=== PATIENT | male | born 1960 | race Caucasian/White ===

== ENCOUNTER → 2018-05-02 | Outpatient (CLI) | payer OTHER ==
--- NOTE | 2018-05-02 09:57 | MR ---
EXAMINATION TYPE: MR cervical spine wo/w con DATE OF EXAM: 05/02/2018 COMPARISON: Correlation outside cervical spine report dated 01/13/2014 which comments on C4-C6 ACDF, d isc bulge at C3-C4 causing mild spinal canal narrowing, broad-based disc bulge at C5-C6, and diffuse disc bulge at C6-C7. Prior imaging is not available for review. HISTORY: 58-year-old male Cervicalgia / Radiculopathy Technique: Multiplanar, multisequence images of the cervical spine were obtained before and after adm inistration of 9.5 mL intravenous Gadavist gadolinium contrast. FINDINGS: No craniocervical junction abnormality, predental space widening, or prevertebral soft tissue swellin g. There is redemonstration of C4-C6 ACDF. Degenerative disc disease both above and below the fusion at C3-C4 and C6-C7 with disc desiccation an d disc osteophyte complex formation. There is fatty Modic type II endplate change at C6-C7. Alignment is maintained. No suspicious bone marrow placement. Scattered mild facet arthropathy is present. 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 At C2-C3, no significant canal or foraminal stenosis. At C3-C4, above the fusion, there is posterior disc osteophyte complex causing mild to moderate overa ll spinal canal stenosis with abutment and slight flattening of the ventral cord. No joon cord compr ession. There is facet arthropathy causing mild left neuroforaminal stenosis. At the fused C4-C5 level, there is mild congenital canal narrowing. No neuroforaminal stenosis. At the fused C5-C6 level, there is mild congenital canal narrowing without significant neural foramin al stenosis. At C6-C7, there is broad-based disc osteophyte complex with uncovertebral joint and facet arthropathy . Changes result in [id number] left and mild right neuroforaminal stenosis with moderate overal l spinal canal stenosis with AP canal dimension of 7 mm. There is abutment and flattening of the vent ral cord without joon cord compression. At C7-T1, there is a left paracentral disc protrusion with facet arthropathy. No significant spinal c anal or neuroforaminal stenosis. No T2-weighted cord signal abnormality. No prevertebral or paravertebral soft tissue abnormality. No abnormal enhancement within the spinal canal. IMPRESSION: 1. Status post C4-C6 ACDF. There is a component of underlying mild congenital spinal canal narrowing. Scattered mild facet arthropathy. 2. There is degenerative change both above and below the fusion. Below the fusion at C6-C7, broad-bas ed disc osteophyte complex with uncovertebral joint and facet arthropathy results in mild to moderate left and mild right neuroforaminal stenosis and moderate overall spinal canal narrowing. There is ab utment and slight flattening of the ventral cord without cord compression. 3. Above the fusion at C3-C4, disc osteophyte complex causes overall mild to moderate spinal canal na rrowing with slight abutment and flattening of the ventral cord again without cord compression. Mild left neuroforaminal stenosis here.
== END | disposition home or self-care (01) ==
LOC: RADMRIMAIN 08:13
PROVIDERS: ATTEND Physical Medicine & Rehabilitation
DX: M99.71 Connective tissue and disc stenosis of intervertebral foramina of cervical region (principal); M48.02 Spinal stenosis, cervical region; M46.92 Unspecified inflammatory spondylopathy, cervical region; M47.812 Spondylosis without myelopathy or radiculopathy, cervical region; Z98.1 Arthrodesis status
CPT/HCPCS: 72156; A9581

== ENCOUNTER 2020-04-23 05:09 | Emergency (ER) | payer MEDICARE ==
[2020-04-23 05:18] VITALS: BP 136/81; PULSE 61; RESP 20; TEMP 98.1
[2020-04-23] MEDS ORDERED: hydrOXYzine HCL 25 MG TAB PO STA (06:17)
[2020-04-23] MEDS ORDERED: diphenhydrAMINE 2% CREAM 28.4 GM TUBE TOPICAL STA (06:17)
[2020-04-23] MEDS ORDERED: predniSONE 50 MG TAB PO STA (06:17)
[2020-04-23] MEDS ORDERED: TRIAMCINOLONE 0.1% CREAM 80 GM TUBE TOPICAL STA (06:17)
--- NOTE | 2020-04-23 06:22 | ED ---
Skin/Abscess/FB HPI - General Chief complaint: Skin/Abscess/Foreign Body Stated complaint: rash Time Seen by Provider: 04/23/20 05:40 Source: patient, RN notes reviewed Mode of arrival: ambulatory Limitations: no limitations - History of Present Illness Initial comments: This 60-year-old male presents emergency Department chief complaint of a rash to his bilateral hands, wrist and forearm region. Started approximately 10 days ago. He states it has steadily worsened states is very itchy in which he is constantly itching in the room. Patient denies any new exposures medications denies being told weeds grass or in the rodriguez. Patient states that he took some Benadryl. He states that only thing that helps him is running his hand on hot water for long periods of time. He states that the itching has worsened this morning. Patient denies any other rashes. Denies any difficulty breathing. - Related Data Previous Rx's Medication Instructions Recorded hydrOXYzine HCL [Atarax] 50 mg PO QID PRN #20 tab 04/23/20 predniSONE 50 mg PO DAILY #4 tab 04/23/20 Allergies Allergy/AdvReac Type Severity Reaction Status Date / Time morphine Allergy Nausea & Verified 04/23/20 05:18 Vomiting Review of Systems ROS Statement: Those systems with pertinent positive or pertinent negative responses have been documented in the HPI. ROS Other: All systems not noted in ROS Statement are negative. Past Medical History Additional Past Medical History / Comment(s): back pain History of Any Multi-Drug Resistant Organisms: None Reported Past Surgical History: Back Surgery Past Psychological History: No Psychological Hx Reported Smoking Status: Never smoker Past Alcohol Use History: None Reported Past Drug Use History: None Reported General Exam Limitations: no limitations General appearance: alert, in no apparent distress Head exam: Present: atraumatic, normocephalic, normal inspection Respiratory exam: Present: normal lung sounds bilaterally. Absent: respiratory distress, wheezes, rales, rhonchi, stridor Cardiovascular Exam: Present: regular rate, normal rhythm, normal heart sounds. Absent: systolic murmur, diastolic murmur, rubs, gallop, clicks Neurological exam: Present: alert, oriented X3 Skin exam: Present: warm, dry, intact, normal color, rash (Bilateral hands, forearms there is dry scaly skin, erythematous of the raised rash with excoriations noted there is small vesicles noted) Course Vital Signs 09/25/20 05:13 Temperature 98.1 F Pulse Rate 61 Respiratory 20 Rate Blood Pressure 136/81 O2 Sat by Pulse 98 Oximetry Medical Decision Making - Medical Decision Making 60-year-old male presented for rash. Patient presented have contact dermatitis. Patient we treated with topical and oral steroids, antihistamines. Patient advised not to continuously for hot water on his rash as this may worsen the rash. Patient advised to use moisturizing cream. Disposition Clinical Impression: Contact dermatitis Disposition: HOME SELF-CARE Condition: Stable Instructions (If sedation given, give patient instructions): Contact Dermatitis (ED) Additional Instructions: Avoid excessive water exposure, apply moisturizing cream.Please return to the Emergency Department if symptoms worsen or any other concerns. Prescriptions: hydrOXYzine HCL [Atarax] 50 mg PO QID PRN #20 tab PRN Reason: itching predniSONE 50 mg PO DAILY #4 tab Is patient prescribed a controlled substance at d/c from ED?: No Referrals: None,Stated [Primary Care Provider] - 1-2 days Time of Disposition: 06:22
== END 2020-04-23 06:40 | disposition home or self-care (01) ==
LOC: EC 05:09
DX: L25.9 Unspecified contact dermatitis, unspecified cause (principal); Z88.5 Allergy status to narcotic agent
CPT/HCPCS: 99282; J7512

== ENCOUNTER 2021-03-03 12:20 | Emergency (ER) | payer MEDICARE ==
[2021-03-03 12:23] VITALS: TEMP 97.8
[2021-03-03] MEDS ORDERED: ONDANSETRON 4 MG/2 ML VIAL IVP STA (12:47)
[2021-03-03] MEDS ORDERED: KETOROLAC 15 MG/ML 1 ML VIAL IVP STA (12:47)
[2021-03-03] MEDS ORDERED: SODIUM CHLORIDE 0.9% 1,000 ML IV STA (12:47)
--- NOTE | 2021-03-03 13:15 | ED ---
General Adult HPI - General Chief complaint: Abdominal Pain Stated complaint: flank pain Time Seen by Provider: 03/03/21 12:31 Source: patient, RN notes reviewed Mode of arrival: ambulatory Limitations: no limitations - History of Present Illness Initial comments: 61-year-old male with a past medical history of back pain presents to the emergency room for l left-sided abdominal and side pain. This is been ongoing since 8 AM. Patient states he thinks it is a kidney stone. States urinating actually improved symptoms. Denies hematuria. Denies fevers. Patient does admit to one episode of vomiting this morning. Patient has no other complaints at this time including shortness of breath, chest pain, nausea or vomiting, headache, or visual changes. - Related Data Home Medications Medication Instructions Recorded Confirmed Baclofen [Lioresal] 10 mg PO DAILY 03/03/21 03/03/21 Celecoxib [CeleBREX] 200 mg PO DAILY 03/03/21 03/03/21 HYDROcodone/APAP 5-325MG [[place] 1 tab PO TID PRN 03/03/21 03/03/21 5-325] Previous Rx's Medication Instructions Recorded HYDROcodone/APAP 5-325MG [[place] 1 tab PO Q6HR PRN #10 tab 03/03/21 5-325] Ondansetron HCl [Zofran] 4 mg PO Q8HR PRN #14 tablet 03/03/21 Tamsulosin [Flomax] 0.4 mg PO DAILY #20 cap 03/03/21 Allergies Allergy/AdvReac Type Severity Reaction Status Date / Time morphine AdvReac Nausea & Verified 03/03/21 13:43 Vomiting Review of Systems ROS Statement: Those systems with pertinent positive or pertinent negative responses have been documented in the HPI. ROS Other: All systems not noted in ROS Statement are negative. Past Medical History Additional Past Medical History / Comment(s): back pain History of Any Multi-Drug Resistant Organisms: None Reported Past Surgical History: Back Surgery Past Psychological History: No Psychological Hx Reported Smoking Status: Never smoker Past Alcohol Use History: None Reported Past Drug Use History: None Reported General Exam Limitations: no limitations General appearance: alert, in no apparent distress Head exam: Present: atraumatic, normocephalic, normal inspection Eye exam: Present: normal appearance, PERRL, EOMI. Absent: scleral icterus, con junctival injection, periorbital swelling ENT exam: Present: normal exam, mucous membranes moist Neck exam: Present: normal inspection. Absent: tenderness, meningismus, lymphadenopathy Respiratory exam: Present: normal lung sounds bilaterally. Absent: respiratory distress, wheezes, rales, rhonchi, stridor Cardiovascular Exam: Present: regular rate, normal rhythm, normal heart sounds. Absent: systolic murmur, diastolic murmur, rubs, gallop, clicks GI/Abdominal exam: Present: soft, normal bowel sounds. Absent: distended, tenderness, guarding, rebound, rigid Back exam: Present: CVA tenderness (L). Absent: CVA tenderness (R) Course Vital Signs 03/03/21 12:21 Temperature 97.8 F Pulse Rate 73 Respiratory 16 Rate Blood Pressure 152/84 O2 Sat by Pulse 98 Oximetry Medical Decision Making - Medical Decision Making Vitals are stable. CBC is unremarkable. Leukocytosis likely reactive CMP unremarkable. Creatinine 1.27, BUN 22. Patient given a liter of fluids. Urinalysis does show moderate blood with [address] abdomen and pelvis showed 0.4 cm obstructing distal left ureteral stone with moderate left hydronephrosis and hydroureter. However there is also a possible small punctate stone in the right ureter with hydroureter and hydronephrosis. I did speak with Dr. Verdin about this. He is comfortable seeing patient in the office tomorrow given his pain is improved on the left side and he has not been having any pain on the right side. He is wanting to see patient in the office tomorrow. [place] [facility] care unit nurse did call the office to tell them he wants to see patient tomorrow per Dr. Verdin's request. Patient will be discharged home with pain meds, Flomax, and Zofran. Requested he not take Motrin until he sees urology. - Lab Data Result diagrams: 03/03/21 12:59 03/03/21 12:59 Lab Results 03/03/21 03/03/21 03/03/21 Range/Units 12:59 12:59 12:59 WBC 12.6 H (3.8-10.6) k/uL RBC 5.05 (4.30-5.90) m/uL Hgb 15.4 (13.0-17.5) gm/dL Hct 45.3 (39.0-53.0) % MCV 89.7 (80.0-100.0) fL MCH 30.6 (25.0-35.0) pg MCHC 34.1 (31.0-37.0) g/dL RDW 13.3 (11.5-15.5) % Plt Count 197 (150-450) k/uL MPV 7.7 Neutrophils % 86 % Lymphocytes % 7 % Monocytes % 5 % Eosinophils % 1 % Basophils % 0 % Neutrophils # 10.9 H (1.3-7.7) k/uL Lymphocytes # 0.9 L (1.0-4.8) k/uL Monocytes # 0.7 (0-1.0) k/uL Eosinophils # 0.1 (0-0.7) k/uL Basophils # 0.0 (0-0.2) k/uL Sodium 137 (137-145) mmol/L Potassium 4.5 (3.5-5.1) mmol/L Chloride 106 (98-107) mmol/L Carbon Dioxide 24 (22-30) mmol/L Anion Gap 7 mmol/L BUN 22 H (9-20) mg/dL Creatinine 1.27 H (0.66-1.25) mg/dL Est GFR (CKD-EPI)AfAm 71 (>60 ml/min/1.73 sqM) Est GFR (CKD-EPI)NonAf 61 (>60 ml/min/1.73 sqM) Glucose 140 H (74-99) mg/dL Calcium 9.7 (8.4-10.2) mg/dL Total Bilirubin 0.6 (0.2-1.3) mg/dL AST 33 (17-59) U/L ALT 25 (4-49) U/L Alkaline Phosphatase 64 (38-126) U/L Total Protein 7.1 (6.3-8.2) g/dL Albumin 4.2 (3.5-5.0) g/dL Amylase 59 (30-110) U/L Lipase 42 (23-300) U/L Urine Color Yellow Urine Appearance Clear (Clear) Urine pH 5.0 (5.0-8.0) Ur Specific [place] 1.020 (1.001-1.035) Urine Protein Negative (Negative) Urine Glucose (UA) Negative (Negative) Urine Ketones Negative (Negative) Urine Blood Moderate H (Negative) Urine Nitrite Negative (Negative) Urine Bilirubin Negative (Negative) Urine Urobilinogen <2.0 (<2.0) mg/dL Ur Leukocyte Esterase Negative (Negative) Urine RBC 66 H (0-5) /hpf Urine WBC 2 (0-5) /hpf Ur Squamous Epith Cells <1 (0-4) /hpf Urine Mucus Rare H (None) /hpf Disposition Clinical Impression: Ureterolithiasis, Hematuria Disposition: HOME SELF-CARE Condition: Good Instructions (If sedation given, give patient instructions): Kidney Stones (ED) Additional Instructions: Please take medications as directed. Do not take Motrin and until you speak with urology. Follow-up with urology tomorrow. Office staff is aware you need to be seen and you have an appointment at 8:40 am. Return to the emergency room for any worsening symptoms. Prescriptions: Tamsulosin [Flomax] 0.4 mg PO DAILY #20 cap HYDROcodone/APAP 5-325MG [[place] 5-325] 1 tab PO Q6HR PRN #10 tab PRN Reason: Pain Ondansetron HCl [Zofran] 4 mg PO Q8HR PRN #14 tablet PRN Reason: Nausea Is patient prescribed a controlled substance at d/c from ED?: No Referrals: Gustavo Cali MD [REFERRING] - 1-2 days Franco Verdin MD [STAFF PHYSICIAN] - 1-2 days Time of Disposition: 14:19
[2021-03-03 13:21] LABS: Basophils % (A) 0 %; Eosinophils # (A) 0.1 k/uL (0-0.7); Eosinophils % (A) 1 %; HCT 45.3 % (39.0-53.0); HGB 15.4 gm/dL (13.0-17.5); Lymphocytes # (A) 0.9 k/uL (1.0-4.8); Lymphocytes % (A) 7 %; MCH 30.6 pg (25.0-35.0); MCHC 34.1 g/dL (31.0-37.0); MCV 89.7 fL (80.0-100.0); Mean Platelet Volume 7.7; Monocytes # (A) 0.7 k/uL (0-1.0); Monocytes % (A) 5 %; Neutrophils # (A) 10.9 k/uL (1.3-7.7); Neutrophils % (A) 86 %; Platelet Count 197 k/uL (150-450); RBC 5.05 m/uL (4.30-5.90); RDW 13.3 % (11.5-15.5); WBC 12.6 k/uL (3.8-10.6)
[2021-03-03 13:38] LABS: Appearance,Urine Clear (Clear); Bilirubin,Urine Negative (Negative); Blood,Urine Moderate (Negative); Color,Urine Yellow; Glucose,Urine (UA) Negative (Negative); Ketones,Urine Negative (Negative); Leukocyte Esterase,Urine Negative (Negative); Mucus,Urine Rare /hpf; Nitrite,Urine Negative (Negative); Protein,Urine Negative (Negative); RBC,Urine 66 /hpf (0-5); Squamous Epithelial Cell,Urine <1 /hpf (0-4); Urobilinogen,Urine <2.0 mg/dL (<2.0); WBC,Urine 2 /hpf (0-5)
[2021-03-03 13:39] LABS: Albumin 4.2 g/dL (3.5-5.0); Calcium 9.7 mg/dL (8.4-10.2); Potassium 4.5 mmol/L (3.5-5.1); Total Bilirubin 0.6 mg/dL (0.2-1.3); Total Protein 7.1 g/dL (6.3-8.2)
--- NOTE | 2021-03-03 14:18 | CT ---
EXAMINATION TYPE: CT abdomen pelvis wo con DATE OF EXAM: 03/03/2021 COMPARISON: None INDICATION: left flank pain, history of prior stones DLP: 981.4 mGycm, Automated exposure control for dose reduction was used. CONTRAST: 0 mL of Isovue 300. Study performed without Oral Contrast TECHNIQUE: Axial images were obtained from above the diaphragm to the pubic rami in the axial plane a t 5 mm thick sections. Reconstructed images are reviewed on the computer in the coronal plane. FINDINGS: Limited CT sections are obtained the lung bases. There is mild compressive atelectasis within the de pendent lung bases greater on the right.. CT ABDOMEN: Liver: Normal Spleen: Normal Pancreas: There is some fatty infiltration within the head and body of the pancreas. Adrenal glands: The adrenal glands are normal. Gallbladder: Normal Kidneys: No masses are evident. There is moderate left hydronephrosis. Mild left hydroureter is prese nt. There appears to be mild right hydronephrosis. Mild right hydroureter may be present. Punctate ca lcifications not excluded in the distal right hemipelvis, series 201 image 124. No cysts are present. No suspicious renal stones are identified. Aorta: Normal Inferior vena cava: Normal. CT PELVIS: Loops of bowel within the abdomen and pelvis are normal. This study is lateral contrast limiting bowel evaluation. Appendix: Normal as visualized. Urinary bladder: Normal. Genitourinary structures: Prostate is prominent. Osseous structures: No suspicious lytic or sclerotic lesions. IMPRESSIONS: 1. 0.4 cm obstructing distal left ureteral stone with moderate left hydronephrosis and hydroureter. 2. Punctate distal right ureteral stone is not excluded with mild right hydronephrosis and hydrourete r.
[2021-03-03 14:45] VITALS: BP 136/96; PULSE 62; RESP 18
== END 2021-03-03 14:45 | disposition home or self-care (01) ==
LOC: EC 12:20
DX: N13.2 Hydronephrosis with renal and ureteral calculous obstruction (principal); Z88.5 Allergy status to narcotic agent
CPT/HCPCS: 36415; 80053; 82150; 83690; 85025; 81001; 74176; 96374; 96375; 96361 ×2; 99284; J2405; J1885

== ENCOUNTER → 2021-03-18 | Outpatient (CLI) | payer MEDICARE ==
--- NOTE | 2021-03-18 10:20 | XR ---
EXAMINATION TYPE: XR KUB DATE OF EXAM: 03/18/2021 10:06 AM CLINICAL HISTORY: Kidney stones TECHNIQUE: Two Upright KUB images of the abdomen are obtained. COMPARISON: CT abdomen and pelvis March 03, 2021. FINDINGS: The 4 mm distal left ureter calculus on CT not clearly identified on plain films. Overall nonobstructive bowel gas pattern. Vertebral plasty at T12 level redemonstrated. Mild to moder ate disc space narrowing L4-L5 level redemonstrated. IMPRESSION: As above.
== END | disposition home or self-care (01) ==
LOC: RADXRMAIN 09:27
PROVIDERS: ATTEND Urology
DX: N20.0 Calculus of kidney (principal)
CPT/HCPCS: 74018

== ENCOUNTER 2022-12-25 23:11 | Emergency (ER) | payer MEDICARE ==
[2022-12-25 23:23] VITALS: TEMP 98.1
--- NOTE | 2022-12-26 00:15 | ED ---
Chest Pain HPI - General Chief Complaint: Chest Pain Stated Complaint: Chest Pain Time Seen by Provider: 12/25/22 23:31 Source: patient, RN notes reviewed Mode of arrival: wheelchair Limitations: no limitations - History of Present Illness Initial Comments: Patient is a 62-year-old male presenting to the emergency room with complaints of chest pain which is on the lower left side of his sternum. He reports that the pain is stabbing like in nature that occurs with left arm movement and continuous left arm movement intensifies his pain. He denies any increase in pain with palpation or deep inspiration. He denies any known trauma. He reports a chronic cough since having Covid approximately 2 years ago and that he also developed grossly after having Covid and his pain is currently experiencing feels similar to that pain. He denies any changes in his chronic cough. He does report some difficulty in breathing when lying down due to increased pain when he lies down. He denies any other associated symptoms including breath not related to pain, edema, diaphoresis, headache, dizziness, abdominal pain, nausea, vomiting, fevers or chills. He reports taking a baclofen which he is currently on for chronic back pain with no change in his symptoms. He denies any other significant past medical history. - Related Data Home Medications Medication Instructions Recorded Confirmed Baclofen [Lioresal] 10 mg PO DAILY 03/03/21 03/03/21 Celecoxib [CeleBREX] 200 mg PO DAILY 03/03/21 03/03/21 Previous Rx's Medication Instructions Recorded HYDROcodone/APAP 5-325MG [[place] 1 tab PO Q6HR PRN #10 tab 03/03/21 5-325] Tamsulosin [Flomax] 0.4 mg PO DAILY #20 cap 03/03/21 ondansetron HCL [Zofran] 4 mg PO Q8HR PRN #14 tablet 03/03/21 Allergies Allergy/AdvReac Type Severity Reaction Status Date / Time morphine AdvReac Nausea & Verified 12/25/22 23:24 Vomiting Review of Systems ROS Statement: Those systems with pertinent positive or pertinent negative responses have been documented in the HPI. ROS Other: All systems not noted in ROS Statement are negative. Past Medical History Additional Past Medical History / Comment(s): back pain History of Any Multi-Drug Resistant Organisms: None Reported Past Surgical History: Back Surgery, Orthopedic Surgery Past Psychological History: No Psychological Hx Reported Smoking Status: Never smoker Past Alcohol Use History: None Reported Past Drug Use History: None Reported General Exam Limitations: no limitations General appearance: alert, in no apparent distress Head exam: Present: atraumatic, normocephalic, normal inspection Eye exam: Present: normal appearance, PERRL, EOMI. Absent: scleral icterus, conjunctival injection, periorbital swelling ENT exam: Present: normal exam, mucous membranes moist Neck exam: Present: normal inspection, full ROM Respiratory exam: Present: normal lung sounds bilaterally. Absent: respiratory distress, wheezes, rales, rhonchi, stridor, chest wall tenderness, accessory muscle use, decreased breath sounds, prolonged expiratory Cardiovascular Exam: Present: regular rate, normal rhythm, normal heart sounds. Absent: systolic murmur, diastolic murmur, rubs, gallop, clicks GI/Abdominal exam: Present: soft, normal bowel sounds. Absent: distended, tenderness, guarding, rebound, rigid Extremities exam: Present: normal inspection. Absent: tenderness, pedal edema, joint swelling Back exam: Present: normal inspection Neurological exam: Present: alert, oriented X3, CN II-XII intact Psychiatric exam: Present: normal affect, normal mood Skin exam: Present: warm, dry, intact, normal color. Absent: rash Course Vital Signs 12/25/22 23:21 Temperature 98.1 F Pulse Rate 91 Respiratory 20 Rate Blood Pressure 158/98 O2 Sat by Pulse 99 Oximetry Chest Pain MDM - MDM Was pt. sent in by a medical professional or institution (, PA, TALENT ACQUISITION CONSULTANT, urgent care, hospital, or retirement...) When possible be specific @ -No Did you speak to anyone other than the patient for history (EMS, parent, family, police, friend...)? What history was obtained from this source @ -No Did you review nursing and triage notes (agree or disagree)? Why? @ -I reviewed and agree with nursing and triage notes Were old charts reviewed (outside hosp., previous admission, EMS record, old EKG, old radiological studies, urgent care reports/EKG's, retirement records)? Report findings @ -No old charts were reviewed Differential Diagnosis (chest pain, altered mental status, abdominal pain women, abdominal pain men, vaginal bleeding, weakness, fever, dyspnea, syncope, headache, dizziness, GI bleed, back pain, seizure, CVA, palpatations, mental health, musculoskeletal)? @ -Differential Chest Pain: Stable Angina, Unstable Angina, STEMI, NSTEMI Aortic Dissection, Pneumothorax, Musculoskeletal, Esophageal Spasm GERD, Cholecystitis, Pancreatitis, Zoster, this is not meant to be an all-inclusive list. EKG interpreted by me (3pts min.). @ -Sinus rhythm, ventricular rate 72 bpm, AK interval 175 ms, QRS duration 85 ms, QT/QTC 374/390 ms, PRT axes 71, -4, 26 X-rays interpreted by me (1pt min.). @ -Chest x-ray 2 view with bilateral ribs: Bibasal atelectasis, no consolidation, pleural effusion or pneumothorax. No cardiomegaly. No acute fractures of the ribs or subluxation. T4 vertebral plasty cement noted. CT interpreted by me (1pt min.). @ -None done U/S interpreted by me (1pt. min.). @ -None done What testing was considered but not performed or refused? (CT, X-rays, U/S, labs)? Why? @ -None What meds were considered but not given or refused? Why? @ -None Did you discuss the management of the patient with other professionals (professionals i.e. , PA, TALENT ACQUISITION CONSULTANT, lab, RT, psych nurse, social media marketing specialist, hand slitter, teacher, head correction officer, case folder)? Give summary @ -No Was smoking cessation discussed for >3mins.? @ -No Was critical care preformed (if so, how long)? @ -No Were there social determinants of health that impacted care today? How? (Ho melessness, low income, unemployed, alcoholism, drug addiction, transportation, low edu. Level, literacy, decrease access to med. care, penitentiary, rehab)? @ -No Was there de-escalation of care discussed even if they declined (Discuss DNR or withdrawal of care, Hospice)? DNR status @ -No What co-morbidities impacted this encounter? (DM, HTN, Smoking, COPD, CAD, Cancer, CVA, ARF, Chemo, Hep., AIDS, mental health diagnosis, sleep apnea, morbid obesity)? @ -None Was patient admitted / discharged? Hospital course, mention meds given and route, prescriptions, significant lab abnormalities, going to OR and other pertinent info. @ -62-year-old male presenting to the emergency room with complaints of chest pain that is in the lower left-sided sternal region ongoing since last night with increased intensity. He reports that the pain is most severe when he is moving his left arm upward. He denies any pain with deep inspiration. He denies any associated symptoms including any shortness of breath, diaphoresis, headache, dizziness. He does have a chronic cough since having Covid 2 years ago and had pleurisy shortly after Covid as well. Chest pain presentation atypical however given age will start typical chest pain workup with EKG, CBC, CMP, coags, magnesium, troponin will obtain chest x-ray and include x-ray of ribs given pain worse with left arm movement. Patient denies analgesic need at this time. Laboratory studies reveal normal coags. CBC with elevated WBC at 10.7 normal differential. No other abnormalities on CBC. CMP shows elevated glucose of 104 otherwise no abnormalities. Normal renal function, normal liver function and normal electrolytes. Magnesium normal. Troponin negative. Chest x-ray without any acute cardiopulmonary process. Of note in the region where he is reporting pain is originating from it is near the location of his vertebroplasty cement. Patient reports as he has been laying in the bed pain seems to be worsening slowly. Will give Toradol and monitor response for pain. Advised the pains persist recommend observation stay for further monitoring. No significant improvement in pain from Toradol however further discussion with patient revealed that patient had utilized a pole for leverage to help assist with a generator early in the day prior to his symptoms starting. He also notes that in taking a shower after the event that pain did seem to subside. Discussed with patient signs and symptoms of pectoralis strains and restrictions related to the strain. Encouraged use of ice or warm packs as needed for pain and continuation of home medications of baclofen and [place] to treat pain. Encouraged follow-up with primary care provider. Return parameters to the emergency room discussed. Will discharge home in stable condition on previously prescribed baclofen and [place] for pectoralis muscle strain advising follow-up with primary care provider. Undiagnosed new problem with uncertain prognosis? @ -No Drug Therapy requiring intensive monitoring for toxicity (Heparin, Nitro, Insulin, Cardizem)? @ -No Were any procedures done? @ -No Diagnosis/symptom? @ -Pectoralis muscle strain Acute, or Chronic, or Acute on Chronic? @ -Acute Uncomplicated (without systemic symptoms) or Complicated (systemic symptoms)? @ -Uncomplicated Side effects of treatment? @ -No Exacerbation, Progression, or Severe Exacerbation? @ -No Poses a threat to life or bodily function? How? (Chest pain, [place], [place], pneumonia, PE, COPD, DKA, ARF, appy, cholecystitis, CVA, Diverticulitis, Homicidal, Suicidal, threat to staff... and all critical care pts) @ -No Case discussed with Dr. Nina. Disposition Clinical Impression: Pectoralis muscle strain Disposition: HOME SELF-CARE Condition: Stable Instructions (If sedation given, give patient instructions): Chest Wall Pain (ED) Additional Instructions: Utilize RT prescribed baclofen and [place] prescriptions for pain as needed. Application of ice or heat may help with your symptoms. Avoid heavy lifting, excessive pulling or pushing motions. Please follow-up with your primary care provider. Please return to the Emergency Department if symptoms worsen or any other concerns. Is patient prescribed a controlled substance at d/c from ED?: No Referrals: Jillian Cornejo MD [Primary Care Provider] - 1-2 days Time of Disposition: 02:57
[2022-12-26 00:34] LABS: Basophils % (A) 0 %; Eosinophils # (A) 0.3 k/uL (0-0.7); Eosinophils % (A) 2 %; HCT 43.6 % (39.0-53.0); HGB 14.9 gm/dL (13.0-17.5); Lymphocytes # (A) 1.6 k/uL (1.0-4.8); Lymphocytes % (A) 15 %; MCHC 34.3 g/dL (31.0-37.0); MCV 87.7 fL (80.0-100.0); Monocytes # (A) 0.9 k/uL (0-1.0); Monocytes % (A) 9 %; Neutrophils # (A) 7.7 k/uL (1.3-7.7); Neutrophils % (A) 72 %; Platelet Count 196 k/uL (150-450); RBC 4.97 m/uL (4.30-5.90); RDW 12.6 % (11.5-15.5); WBC 10.7 k/uL (3.8-10.6)
[2022-12-26 00:53] LABS: Partial Thromboplastin Time 24.8 sec (22.0-30.0); Prothrombin Time 10.2 sec (9.0-12.0)
[2022-12-26 00:56] LABS: ALT 26 U/L (4-49); AST 28 U/L (17-59); African American GFR (CKD) >90 (>60 ml/min/1.73 sqM); Albumin 3.8 g/dL (3.5-5.0); Alkaline Phosphatase 71 U/L (38-126); Anion Gap 8 mmol/L; Blood Urea Nitrogen 17 mg/dL (9-20); Calcium 9.1 mg/dL (8.4-10.2); Carbon Dioxide 25 mmol/L (22-30); Chloride 105 mmol/L (98-107); Glucose 104 mg/dL (74-99); Magnesium 1.9 mg/dL (1.6-2.3); Non-African American GFR(CKD) >90 (>60 ml/min/1.73 sqM); Potassium 3.8 mmol/L (3.5-5.1); Sodium 138 mmol/L (137-145); Total Bilirubin 0.4 mg/dL (0.2-1.3); Total Protein 6.8 g/dL (6.3-8.2)
--- NOTE | 2022-12-26 01:40 | XR ---
EXAM: XR Bilateral Ribs and AP Chest, 3 or More Views CLINICAL HISTORY: chest pain TECHNIQUE: Frontal and oblique views of the bilateral ribs and frontal view of the chest. COMPARISON: No relevant prior studies available. FINDINGS: Lungs: Hypoventilation with minimal bibasilar atelectasis. No consolidation. Pleural space: Unremarkable. No pneumothorax. Heart: Unremarkable. No cardiomegaly. Mediastinum: Unremarkable. Bones/joints: No acute fracture. Lower cervical spine fusion hardware. T12 vertebral body vertebroplasty cement. IMPRESSION: No acute abnormality.
[2022-12-26] MEDS ORDERED: KETOROLAC 15 MG/ML 1 ML VIAL IVP STA (01:50)
[2022-12-26 03:15] VITALS: BP 142/88; PULSE 62; RESP 16
== END 2022-12-26 03:02 | disposition home or self-care (01) ==
LOC: EC 23:11
DX: S29.011A Strain of muscle and tendon of front wall of thorax, initial encounter (principal); Z88.5 Allergy status to narcotic agent; X58.XXXA Exposure to other specified factors, initial encounter
CPT/HCPCS: 96374 ×2; 99285 ×2; 36415; 93005; 80053; 83735; 84484; 85025; 85610; 85730; 71111; J1885